=== PATIENT | female | born 1945 | race Caucasian/White ===

== ENCOUNTER 2017-10-31 05:23 | Inpatient (IN) | payer BC, OTHER ==
[2017-10-12 13:21] LABS: HEMATOCRIT 27.2 % (37.0-47.0); HEMOGLOBIN 9.3 gm/dL (12.0-15.0); MCH 34.7 pg (26.0-34.0); MCHC 34.2 g/dL (28.0-37.0); MCV 101.6 fL (80.0-100.0); RBC 2.68 mil/uL (4.20-5.00); RDW 14.7 % (10.5-14.5); WBC 3.6 thou/uL (4.0-11.0)
[2017-10-12 13:22] LABS: URINE BILIRUBIN NEGATIVE (Negative); URINE BLOOD NEGATIVE (Negative); URINE CLARITY CLEAR; URINE COLOR YELLOW; URINE GLUCOSE-RANDOM* NEGATIVE (Negative); URINE KETONES NEGATIVE (Negative); URINE LEUKOCYTES-REFLEX NEGATIVE (Negative); URINE NITRITE-REFLEX NEGATIVE (Negative); URINE PROTEIN (DIPSTICK) NEGATIVE (Negative); URINE SPECIFIC GRAVITY 1.015 (1.005-1.035); URINE UROBILINOGEN 0.2 E.U./dl (0.2-1.0)
[2017-10-12 13:35] LABS: PROTIME 9.6 Seconds (9.3-11.4)
[2017-10-12 13:40] LABS: ALBUMIN 3.8 g/dL (3.4-5.0); CALCIUM 9.1 mg/dL (8.5-10.1); CREATININE 1.4 mg/dL (0.6-1.0); POTASSIUM 4.3 mmol/L (3.5-5.1)
[~2017-10-31] VITALS: Ht 157.5 cm; Wt 63.5 kg
--- NOTE | ~2017-10-31 | O ---
[facility] Kimberlee [address] [place] [address] OPERATIVE REPORT Name: CORTNEY CROSS Room #: 409-P ADM IN M.R.#: [id number] Admission: 10/31/17 Attend Phys: Andreas Francois MD Discharge: Date of : 49 Report #: [id number] THIS REPORT FOR: //name// CC: Andreas Covarrubias DATE OF SERVICE: 10/31/2017 PREOPERATIVE DIAGNOSIS: End-stage degenerative arthritis, right knee with varus malalignment. POSTOPERATIVE DIAGNOSIS: End-stage degenerative arthritis, right knee with varus malalignment. PROCEDURE: Right total knee arthroplasty. SURGEON: Andreas Francois MD INDICATIONS: This 72-year-old female presents with progressive right knee pain with flexion contracture and varus malalignment. She has had similar problems on the opposite knee benefited with total knee replacement in the past. She is anxious now to go ahead with right total knee arthroplasty. We have discussed preoperatively the risks and benefits. She and her understand well and wish to proceed. DESCRIPTION OF PROCEDURE: The patient was taken to the operating room where she was placed under general anesthesia. A femoral nerve block was also applied. Prophylactic intravenous antibiotics were administered. The right knee and leg were meticulously prepped and draped and a thigh tourniquet inflated to 300 mmHg. An anterior longitudinal skin incision was made. This was carried through the medial parapatellar retinaculum and the patella was reflected laterally. Marked degenerative change in all 3 compartments was noted. The Stack and Nephew knee system was utilized. Intramedullary guides were used on both the femur and the tibia. The femur was cut in 5 degrees of valgus and the tibia cut perpendicular to the long axis of the bone. Sufficient bone was resected to correct the preoperative flexion contracture and correct the varus malalignment. The Stack and Nephew Legion size 4 femoral component seemed to fit nicely. A size 3 tibial component fit nicely. A trial reduction was performed and the knee seemed best suited for a 10 mm polyethylene insert. This resulted in full knee extension and flexion beyond 135 degrees with satisfactory alignment and good stability. The patellar surface was resected and a 32 mm patellar button fit nicely. Appropriate anchor holes were created. The surfaces were thoroughly irrigated and dried. The intramedullary canal was blocked with a bone block on both the femoral and tibial sides. Methyl methacrylate cement was then mixed and injected into the porous surface of the proximal tibia. The Stack and Nephew size 3 Yesi right tibial baseplate was [address] [address] OPERATIVE REPORT Name: CORTNEY CROSS Room #: 409-P [facility]#: [id number] Admission: 10/31/17 Attend Phys: Andreas Francois MD Discharge: Date of : 49 Report #: [id number] then inserted and impacted into position. It seated nicely and appeared to be secure. Excess cement was removed around its margin. A 10 mm polyethylene insert was then applied. This snapped into position and seemed to be secure. The right size 4 cruciate retaining Legion femoral component was then impacted onto the distal femur. It seated nicely and appeared to be secure. A small amount of cement was used at the distal anchor holes where the bone is mildly osteopenic. The patella was implanted using methyl methacrylate cement and appropriate anchor holes. The size 32 mm patellar button was secured with a patellar clamp until the cement had hardened. All excess cement was removed from around its margin. Once the components were secure, range of motion, alignment and stability were once again assessed and felt to be satisfactory. A single Hemovac was then left in the wound exiting through a separate lateral stab incision. The fascia was closed with multiple #1 Vicryl sutures. The tourniquet was deflated after a total tourniquet time of 49 minutes. Good hemostasis was confirmed. The subcutaneous tissues were then closed with 0 Monocryl and the skin was closed with skin isael. A sterile dressing was applied. The patient was awakened and returned to the recovery room in good condition. <ELECTRONICALLY SIGNED> By: Andreas Francois MD 11/01/17 0822 [id number] 1131 Andreas Francois MD /nt
--- NOTE | ~2017-10-31 | EKG ---
[address] [address] ELECTROCARDIOGRAM REPORT Name: CORTNEY CROSS Room #: [facility]#: [id number] Admission: Attend Phys: Andreas Francois MD Discharge: Date of : 49 Report #: [id number] THIS REPORT FOR: //name// [facility] Test Date: 2017-10-12 Test Time: 12:57:13 Pat Name: CORTNEY CROSS Department: Room: Gender: F Family Coach: Daylin WADSWORTH : 1945 Requested By: Andreas Francois Order Number: [id number] MD: Cleveland Price Measurements Intervals [place] Rate: 79 P: 31 MI: 162 QRS: 11 QRSD: 92 T: 24 QT: 371 QTc: 426 Interpretive Statements Sinus rhythm No significant abnormality No previous ECG available for comparison Electronically Signed On 10-13-2017 8:46:38 CDT by Cleveland Price [email or web address] <ELECTRONICALLY SIGNED> By: Cleveland Price MD, [facility] 10/13/17 0846 [id number] [facility] Cleveland Price MD, FACC /EPI
[~2017-10-31 05:23] MED LIST: GLEEVEC400 MG PO; LANTUS100 UNIT/M SUBQ; LISINOPRIL10 MG PO; NORVASC2.5 MG PO; VITAMIN D1000 UNI2 PO; WOMEN'S DAILY1 EAC2 PO
[2017-10-31 08:29] VITALS: BP 138/67
[2017-10-31 14:46] LABS: CALCIUM 8.3 mg/dL (8.5-10.1); POTASSIUM 4.2 mmol/L (3.5-5.1)
[2017-10-31 18:42] VITALS: BP 131/66
[2017-10-31 20:00] VITALS: BP 133/60
[2017-11-01] VITALS: BP 121/53
[2017-11-01 03:00] VITALS: BP 119/58
[2017-11-01 06:09] LABS: MCH 35.1 pg (26.0-34.0); MCHC 34.1 g/dL (28.0-37.0); RBC 1.55 mil/uL (4.20-5.00)
[2017-11-01 06:11] LABS: HEMOGLOBIN 5.5 gm/dL (12.0-15.0)
[2017-11-01 07:44] LABS: HEMATOCRIT 17.2 % (37.0-47.0); HEMOGLOBIN 5.8 gm/dL (12.0-15.0)
[2017-11-01 08:03] VITALS: BP 126/53
[2017-11-01 08:58] VITALS: BP 125/57; BP 128/53
[2017-11-01 11:57] VITALS: BP 113/85; BP 125/57; BP 131/51
[2017-11-01 20:01] VITALS: BP 148/68
[2017-11-02 05:00] VITALS: BP 140/51
[2017-11-02 05:55] LABS: ABSOLUTE NEUTROPHILS 3.9 thou/uL (1.4-8.2); LYMPHOCYTES 11.9 % (24.0-44.0); RBC 1.93 mil/uL (4.20-5.00); WBC 5.1 thou/uL (4.0-11.0)
[2017-11-02 06:01] LABS: BASOPHILS 0.4 % (0.0-2.0); EOSINOPHILS 0.9 % (0.0-3.0); MCH 32.8 pg (26.0-34.0); MCHC 35.2 g/dL (28.0-37.0); MONOCYTES 9.1 % (1.0-8.0); POLYS 77.7 % (36.0-66.0); RDW 18.1 % (10.5-14.5)
[2017-11-02 06:05] LABS: CALCIUM 7.5 mg/dL (8.5-10.1); CREATININE 1.1 mg/dL (0.6-1.0)
[2017-11-02 06:10] LABS: HEMOGLOBIN 6.3 gm/dL (12.0-15.0); MCV 93.3 fL (80.0-100.0)
[2017-11-02 08:14] VITALS: BP 138/74; BP 151/65
[2017-11-02 08:41] VITALS: BP 129/53
[2017-11-02 09:18] LABS: PLATELET COUNT 52 thou/uL (150-400)
[2017-11-02 15:42] LABS: HEMATOCRIT 22.5 % (37.0-47.0); HEMOGLOBIN 7.6 gm/dL (12.0-15.0)
[2017-11-02 20:18] VITALS: BP 150/70
[2017-11-03 05:14] VITALS: BP 135/66
[2017-11-03 05:37] LABS: CALCIUM 7.9 mg/dL (8.5-10.1); POTASSIUM 4.3 mmol/L (3.5-5.1)
[2017-11-03 05:49] LABS: WBC 4.6 thou/uL (4.0-11.0)
[2017-11-03 05:50] LABS: MCH 31.7 pg (26.0-34.0); MCHC 34.9 g/dL (28.0-37.0); MCV 90.9 fL (80.0-100.0); RBC 1.98 mil/uL (4.20-5.00); RDW 19.5 % (10.5-14.5)
[2017-11-03 06:09] LABS: HEMOGLOBIN 6.3 gm/dL (12.0-15.0)
[2017-11-03 07:20] VITALS: BP 133/64
[2017-11-03 07:52] VITALS: BP 130/71; BP 134/64
[2017-11-03 16:05] LABS: HEMATOCRIT 22.9 % (37.0-47.0); HEMOGLOBIN 7.8 gm/dL (12.0-15.0)
[2017-11-03 16:33] VITALS: BP 160/74
[2017-11-03 19:51] VITALS: BP 156/67
[2017-11-04 04:00] VITALS: BP 142/52
[2017-11-04 06:05] LABS: ABSOLUTE NEUTROPHILS 3.8 thou/uL (1.4-8.2); BASOPHILS 0.3 % (0.0-2.0); EOSINOPHILS 1.6 % (0.0-3.0); HEMATOCRIT 21.2 % (37.0-47.0); HEMOGLOBIN 7.3 gm/dL (12.0-15.0); LYMPHOCYTES 11.3 % (24.0-44.0); MCH 31.4 pg (26.0-34.0); MCHC 34.6 g/dL (28.0-37.0); MCV 90.7 fL (80.0-100.0); MONOCYTES 8.7 % (1.0-8.0); PLATELET COUNT 73 thou/uL (150-400); POLYS 78.1 % (36.0-66.0); RBC 2.33 mil/uL (4.20-5.00); RDW 18.2 % (10.5-14.5); WBC 4.9 thou/uL (4.0-11.0)
[2017-11-04 06:09] LABS: CALCIUM 8.1 mg/dL (8.5-10.1); CREATININE 0.8 mg/dL (0.6-1.0); POTASSIUM 4.1 mmol/L (3.5-5.1)
[2017-11-04 08:58] VITALS: BP 158/70
[2017-11-04 17:15] VITALS: BP 158/70
[2017-11-04 17:36] VITALS: BP 140/67
[2017-11-04 19:45] VITALS: BP 126/63
[2017-11-05 04:00] VITALS: BP 140/68
[2017-11-05 04:59] LABS: ABSOLUTE NEUTROPHILS 4.1 thou/uL (1.4-8.2); BASOPHILS 0.3 % (0.0-2.0); EOSINOPHILS 2.2 % (0.0-3.0); HEMOGLOBIN 7.4 gm/dL (12.0-15.0); LYMPHOCYTES 8.9 % (24.0-44.0); MCH 31.1 pg (26.0-34.0); MCHC 33.8 g/dL (28.0-37.0); PLATELET COUNT 90 thou/uL (150-400); POLYS 80.6 % (36.0-66.0); RBC 2.39 mil/uL (4.20-5.00); RDW 17.6 % (10.5-14.5)
[2017-11-05 05:06] LABS: CALCIUM 8.6 mg/dL (8.5-10.1); CREATININE 0.9 mg/dL (0.6-1.0); POTASSIUM 4.5 mmol/L (3.5-5.1)
[2017-11-05 07:54] VITALS: BP 147/66
[2017-11-05] MEDS ORDERED: NORCO 10-325 T1 EACH PO (09:17)
[2017-11-05] MEDS ORDERED: ASPIR 8181 MG PO (09:18)
[2017-11-05 11:05] VITALS: BP 158/70
[2017-11-05 11:28] VITALS: BP 144/66
[2017-11-05 11:59] VITALS: BP 158/70
== END 2017-11-05 13:25 | disposition home health service (06) | DRG 271 ==
LOC: PRE 05:23 → TBA 05:34 → 4N 05:34 → PRE 09:07 → 4N 09:43 → PRE 11:49 → 4N 11-05 13:25
PROVIDERS: Hospitalist; Nuclear Medicine Nuclear Cardiology; Nurse Practitioner Acute Care; Orthopaedic Surgery
DX: I72.4 Aneurysm of artery of lower extremity (principal); M25.061 Hemarthrosis, right knee; M17.11 Unilateral primary osteoarthritis, right knee; E11.9 Type 2 diabetes mellitus without complications; I10 Essential (primary) hypertension; D64.9 Anemia, unspecified; Z79.899 Other long term (current) drug therapy; Z88.0 Allergy status to penicillin
CPT/HCPCS: 10790; 50010; 50101; 50415; 50954; 51130; 51225; 51412; 51771; 53364; 56525; 62110; 62900; 70005